=== PATIENT | female | born 1955 | race Caucasian/White ===

== ENCOUNTER → 2020-04-01 12:26 | Outpatient (CLI) | payer BC, SELFPAY ==
--- NOTE | ~2020-04-01 | DEXA_ITS ---
Bone Density Report Name: Alesia Bhagat Age: 64 Sex: Female Ethnicity: White Date of : 1955 Indication: osteopenia; monitoring treatment; parental hip fracture; height loss; postmenopausal Referring Provider: Meet, Trinity Padilla Study: Bone densitometry was performed. Exam Date: April 01, 2020 Accession number: [id number] Bone Density: Region BMD T-score Z-score Classification AP Spine (L1-L4) 0.880 -1.5 0.2 Osteopenia Femoral Neck (Left) 0.616 -2.1 -0.6 Osteopenia Total Hip (Left) 0.753 -1.6 -0.4 Osteopenia Femoral Neck (Right) 0.654 -1.8 -0.3 Osteopenia Total Hip (Right) 0.806 -1.1 0.0 Osteopenia Total Hip Mean 0.780 -1.4 -0.2 Osteopenia World Health Organization criteria for BMD impression classify patients as: Normal (T-score at or above -1.0), Osteopenia (T-score between -1.0 and -2.5), or Osteoporosis (T-score at or below -2.5). 10-year Fracture Risk: FRAX not reported because: Treated for osteoporosis Previous Exams: Region Exam Age BMD T-score BMD Change BMD Change Date g/cm2 vs Baseline vs Previous AP Spine(L1-L4) 04/01/2020 64 0.880 -1.5 0.019 0.038* 08/17/2017 62 0.842 -1.9 -0.019 0.026* 07/26/2015 60 0.815 -2.1 -0.046 0.122* 01/27/2013 57 0.693 -3.2 -0.168 -0.162* 07/16/2009 54 0.855 -1.7 -0.006 -0.006 05/25/2008 53 0.861 -1.7 Total Hip(Left) 04/01/2020 64 0.753 -1.6 0.004 0.003 08/17/2017 62 0.750 -1.6 0.001 0.016 07/26/2015 60 0.734 -1.7 -0.014 -0.021 01/27/2013 57 0.755 -1.5 0.007 -0.052* 07/16/2009 54 0.808 -1.1 0.059 0.059 05/25/2008 53 0.748 -1.6 Total Hip(Right) 04/01/2020 64 0.806 -1.1 -0.019 0.005 08/17/2017 62 0.801 -1.2 -0.024 0.025 07/26/2015 60 0.776 -1.4 -0.049 0.004 01/27/2013 57 0.772 -1.4 -0.053 -0.067* 07/16/2009 54 0.839 -0.8 0.014 0.014 05/25/2008 53 0.825 -1.0 *Denotes significance at 95% confidence level, LSC for AP Spine = 0.022 g/cm2, LSC for Total Hip = 0.027 g/cm2 Clinical Information Provided by Patient: Parent has had a hip fracture Is being treated for osteoporosis Has used the following medications: Fosamax (i.e. alendronate), Vitamin D, Calcium Patient maximum height was 68 Menopause Age:
== END ==
PROVIDERS: PCP Internal Medicine Geriatric Medicine; Visit Provider Nurse Practitioner Obstetrics & Gynecology
DX: Z13.820 Encounter for screening for osteoporosis (principal); M85.852 Other specified disorders of bone density and structure, left thigh; M85.851 Other specified disorders of bone density and structure, right thigh
CPT/HCPCS: 77080

== ENCOUNTER 2023-06-26 12:31 | Emergency (ER) | payer OTHER, SELFPAY ==
--- NOTE | ~2023-06-26 | XR_ITS ---
EXAMINATION: XR wrist LT min 3V DATE: 06/26/2023 12:58 INDICATION: Left wrist pain post fall TECHNIQUE: Posteroanterior, ulnar deviation, oblique, and lateral views of the left wrist were obtain ed. COMPARISON: none FINDINGS: Alignment is normal. No fracture. Polyarticular osteoarthritis, moderate severity at the triscaphe, f irst and second carpometacarpal, first interphalangeal and at each of the metacarpophalangeal joints. Mild osteoarthritis at the wrist, midcarpal and remaining carpal metacarpal joints. Soft tissues are unremarkable.. IMPRESSION: 1. 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 No acute osseous abnorma lity. Reviewed, dictated and finalized at location A. IMPRESSION: 1. 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 No acute osseous abnormality.
[2023-06-26 12:44] VITALS: BP 126/64; PULSE 73; RESP 16; TEMP 36.3; O2SAT 96
--- NOTE | 2023-06-26 13:19 | ED.UPPEXIN ---
HPI - Extremity Injury (Upper) General Chief Complaint: Extremity Injury, Upper Stated Complaint: INJURED L WRIST Time Seen by Provider: 06/26/23 13:28 Source: patient and RN notes reviewed Mode of arrival: ambulatory Limitations: no limitations History of Present Illness HPI narrative: 68-year-old female presents with concern for left wrist pain. She reports about an hour prior to arrival she fell towards her right side but caught herself with her left wrist. Reports she has connective tissue disease so has some pain but now her wrist is swollen. She denies decreased sensation, strength. Reports pain with rotation of the wrist. complaint: injury to: left and wrist Related Data Home Medications Medication Instructions Recorded Confirmed ergocalciferol (vitamin D2) 1,250 1,250 mcg PO DIRECTED 06/26/23 06/26/23 mcg (50,000 unit) capsule Allergies Allergy/AdvReac Type Severity Reaction Status Date / Time No Known Allergies Allergy Unverified 06/26/23 13:34 Review of Systems Review of Systems: CONSTITUTIONAL: Denies malaise, chills, sweats, or fever. SKIN: Denies rash or itching, open skin, laceration, abrasion, redness, warmth MUSCULOSKELETAL: Reports left wrist pain and swelling NEUROLOGIC: Denies numbness, weakness All systems reviewed & are unremarkable except as noted in HPI and below PMFSH Comments At time of signature, agree with nursing past medical, surgical, social and family history. There is no relevant family history pertinent to the presenting complaint Exam Narrative: GENERAL: Well-appearing, well-nourished, and in no acute distress. HEAD: Normocephalic, atraumatic. EYES: PERRLA, conjunctivae clear NECK: Supple. CHEST: Speaks in full sentences. No respiratory distress. HEART: Regular rate and rhythm. Normal and equal peripheral pulses. EXTREMITIES: Left wrist, hand have grossly normal strength and sensation, decreased range of motion with rotation. Mild wrist edema without ecchymosis. 5/5 strength with digit flexion. Normal sensation with sensitivity to light touch and pain. Radial wrist tenderness. No open wounds, no skin tenting, no devitalized tissue or atrophy, no trophic changes, no obvious deformity, alignment normal, nearby joints and structures intact. Distal pulses palpable and equal bilaterally, skin warm, dry, pink. Capillary refill less than 3 seconds. SKIN: Warm, dry, no rash. NEURO: Alert and oriented x3. PSYCH: Normal mood and affect Course Course Emergency Course: Patient is aware of diagnosis, understands and agrees to treatment plan. Anticipatory guidance given. Patient agrees to follow-up as directed and is aware of reasons to seek care at the emergency department. Portions of this record may have been created with voice recognition software Level of Care: Express Care Visit Vital Signs Vital signs: Vital Signs Temperature 97.4 F L 06/26/23 12:44 Pulse Rate 73 06/26/23 12:44 Respiratory Rate 16 06/26/23 12:44 Blood Pressure 126/64 06/26/23 12:44 Pulse Oximetry 96 06/26/23 12:44 Temperature 97.4 F L 06/26/23 12:44 Pulse Rate 73 06/26/23 12:44 Respiratory Rate 16 06/26/23 12:44 Blood Pressure 126/64 06/26/23 12:44 Pulse Oximetry 96 06/26/23 12:44 Reviewed. Critical Care Time Critical Care Time Critical Care Time: No Discharge Plan Discharge Clinical Impression: Sprain and strain of wrist Patient Disposition: Home, Self-Care Condition: Stable Instructions: Wrist Sprain (ED) Additional Instructions: Avoid activities that cause pain until the pain subsides. Ice to the area 20-30 minutes 4-6 times a day Elevate above heart Elastic wrap as directed for comfort for the next 5-7 days Tylenol for lesser pain Ibuprofen regularly for the next 2-3 days for the inflammation Follow up with your primary care provider if the condition is not improving within 1 week. If the condition worsens with nu
== END 2023-06-26 13:41 | disposition home or self-care (01) ==
PROVIDERS: Emergency Provider Nurse Practitioner; PCP Family Medicine
DX: S63.502A Unspecified sprain of left wrist, initial encounter (principal); S66.912A Strain of unspecified muscle, fascia and tendon at wrist and hand level, left hand, initial encounter; W19.XXXA Unspecified fall, initial encounter
CPT/HCPCS: 73110; 99203; G0463